=== PATIENT | female | born 1950 | race Caucasian/White ===

== ENCOUNTER 2024-01-25 14:00 | Outpatient (CLI) | payer MEDICARE, BC, SELFPAY ==
--- OUTSIDE RECORDS SUMMARY | 2024-01-25 14:04 | XMS_ITS ---
Author Organization [facility] Address [address] [place] [address] Care Team Providers Care Call Or Contact Centre Manager Name Role Phone Unavailable Unavailable Unavailable Surgery Details Not on file Complications Check Surgery Details section. Procedure Estimated Blood Loss Check Surgery Details section. Procedure Findings Check Surgery Details section. Procedure Specimens Taken Check Surgery Details section.
--- OUTSIDE RECORDS SUMMARY | 2024-01-25 14:04 | XMS_ITS | Data Portability ---
Author Organization [place] - [facility], [employer] Address [address] [place] [address] Assessment Encounter Date Assessment Date Assessment LastModified by Organization Details LastModified Time 01/13/2024 01/13/2024 For the R midfoot sprain, concern for lis franc injury or possible stress fracture. Today I recommended the patient use a short CAM boot to offload the foot aggressively. I also placed an MRI order to have pt schedule for 2 weeks if the pain does not improve with conservative measures by then. I instructed the patient to follow up in 3 weeks to review the progress and discuss the MRI results if obtained. I provided my contact information for any urgent concerns and ensured the patient understood the plan. The patient was fitted for a boot and given instructions to schedule a follow-up appointment. [email or web address] Not available 01/13/2024 18:55:24 Plan of Treatment Reminders Order Date Submit Date Provider Last Modified By Organization Details Last Modified Time Details Appointments None record ed. Lab None record ed. Referral None record ed. Procedures None record ed. Surgeries None record ed. Imaging None record ed. Medication Orders None record ed. Patient TargetsNo targets recorded. Patient InstructionsNo instructions recorded. Reason for Referral None Reported. Medical Equipment None Reported. Allergies No known drug allergies Medications Name Sig Start Date Stop Date Status Note LastModified by Organization Details LastModified Time venlafaxine ER 37.5 mg capsule,ext ended release 24 hr TAKE ONE CAPSULE BY MOUTH EVERY DAY WITH A MEAL active Not Available Not Available No t Available atorvastati n 10 mg tablet TAKE ONE TABLET BY MOUTH AT BEDTIME active Not Available Not Available No t Available famotidine 20 mg tablet TAKE ONE TO TWO TABLETS BY MOUTH TWICE A DAY active Not Available Not Available No t Available prednisolon e acetate 1 % eye drops,suspe nsion PLACE IN AFFECTED EYE(S) AFTER SURGERY ONE DROP FOUR TIMES DAILY FOR ONE WEEK, THEN ONE DROP THREE TIMES DAILY FOR ONE WEEK, THEN ONE DROP T 01/16 completed Not Available Not Available Not Available calcium carbonate active Not Available Not Available No t Available aspirin active Not Available Not Avail able Not Available multivitami n active Not Available Not Available Not Available mecobalamin (vitamin B12) active Not Available Not Available Not Available Vitals Date Recorded Body height Body mass index (BMI) Body weight Provider Name and Address Organization Details Last Updated DateTime 01/13/2024 162.56 cm 29.5 kg/m2 86434.89 g Ange Esparza [place] - [facility] 01/17/2024 11:49:41 Social History None recorded. Functional Status None recorded. Mental Status None recorded. Family History Nothing Reported. Medical History No medical history recorded. Gynecological HistoryNo gynecological history recorded. Obstetrics History GPAL:G 0 P 0 0 0 0 Past Encounters Encounter ID Performer Location Encounter Start Date Encounter Closed Date Diagnosis/Indication Diagnosis SNOMED-CT Code Diagnosis ICD10 Code [id number] PAOLA CHAVEZ DPM [facility] [address] [place] [address] 01/13/2024 08:58:08 01/16/2024 09:42:05 Sprain of right foot [id number] S93.601A Health Concerns Section Related Observation LastModified by Organization Detai ls LastModified Time None Recorded Concern Status LastModified by Organization Details LastModified Time None Recorded Advance Directives Directive None Recorded Payers Encounter Date Sequence Insurance Name Policy Number Policy Watts Covered Member ID Watts Member ID Guarantor Name 01/13/2024 1 [facility]: (MEDICARE REPLACEMENT PPO) [id number] Sofiya Gómez [id number] Sofiya Gómez Notes Date Note Type Note Provider Name and Address Organization Details Recorded Time 01/13/2024 text/html The patient reports dropping a picture frame on their right foot in early August, which caused significant pain. The pain initially improved but has worsened over time. The patient also hit the same spot on the foot with a refrigerator door about a week after the initial injury. The pain is described as severe, sometimes waking the patient from sleep. The patient denies any numbness, tingling, or burning sensations. The pain is localized to the area of impact but can radiate to the joint and up the foot. The patient has tried using Voltaren gel, which provided temporary relief, and has recently switched to larger shoes, which alleviated toe jamming but not the overall foot pain. The patient notes that the foot swells and becomes tight when walking and that the pain increases when the foot is elevated for extended periods. PAOLA CHAVEZ DPM [address] [place], [address], [facility] - [facility] 01/13/2024 18:55:44 OBGyn Episode No OBEpisode recorded.
--- OUTSIDE RECORDS SUMMARY | 2024-01-25 14:04 | XMS_ITS | Clinical Summary ---
Author Organization [facility] Address [address] [place] [address] Care Team Providers Care Set Key Driver Name Role Phone Elsewhere, Pcp Primary Care Provider Unavailabl e Source Comments Patient records contain information from all sites at [facility]. For routine questions regarding patient records, call [phone] during business hours, M-F 8:00 AM - 5:00 PM Central Time. Record requests for emergency care only can be directed to [phone] at any time.[facility] Allergies Active Allergy Reactions Criticality Noted Date Comments Adhesive Tape-Silicones Blisters,Rash High 03/15/2013 Ketorolac Other (see comments) 04/28/2023 Burning feeling in eyes Medications * This document contains information received from the source organization and may not represent a complete record from that organization. aspirin [address] tablet Take 81 mg by mouth. 4 Active atorvastatin (LIPITOR) 10 mg tablet Take 10 mg by mouth at bedtime. 2 Active calcium carbonate-vit D3-min 600 mg calcium- 400 unit tablet Take 1 tablet by mouth. 4 Active calcium carbonate/vitam in D3 (CALCIUM 600 + D,3, ORAL) 0 Active cyanocobalamin (VITAMIN B12) 1,000 mcg tablet Take 1,000 mcg by mouth. 1 Active denosumab (PROLIA) 60 mg/mL syringe Inject 60 mg under the skin. 8 Active famotidine (PEPCID) 20 mg tablet Take 1-2 tablets by mouth 2 (two) times a day. 1 Active FLUoxetine (PROzac) 20 mg capsule Take 20 mg by mouth every morning. 3 Active fluticasone propionate (FLONASE) 50 mcg/actuation nasal spray Administer 2 sprays into nostril(s). 1 Active multivitamin tablet Take 1 tablet by mouth daily. 4 Active multivit-min/fe rrous fumarate (MULTI VITAMIN ORAL) 1 Active omega-3 fatty acids-fish oil 340-1,000 mg per capsule Take 2 capsules by mouth daily. 6 Active ejsoh-4e-ule-ep a-fish oil (fish oil) 350-600 mg capsule 0 Active raloxifene (Evista) 60 mg tablet Take 1 tablet by mouth daily. 3 Active sertraline (ZOLOFT) 25 mg tablet TAKE ONE TABLET BY MOUTH EVERY DAY FOR 14 DAYS THEN STOP 2 Active ketorolac (ACULAR) 0.4 % ophthalmic solution 1 drop 3x/d the day before surgery, and 1 drop the morning of surgery, prior to reporting for surgery. After surgery 4x/d for 1 wk then 3x/d for 1 wk then 2x/d for 1 wk then 1x/d for 1 wk then stop 5 mL 3 3 Active ofloxacin (OCUFLOX) 0.3 % ophthalmic solution 1 drop 3x/d the day before surgery at 6PM, 7PM and 8PM. 1 drop the morning of surgery, prior to reporting for surgery. Then 1 drop 4x/d for 1 week, then stop 5 mL 3 3 Active prednisoLONE acetate (PRED FORTE) 1 % ophthalmic suspension After surgery 1 drop 4x/day for 1 week, then 1 drop 3x/day for 1 week, then 1 drop 2x/day for 1 week, then 1 drop 1x/day for 1 week, then stop 5 mL 3 3 Active Active Problems Problem Noted Date Diagnosed Date Cataract Senile Nuclear Sclerosis Right 03/16/19 24 Cataract Senile Nuclear Sclerosis Bilateral 04/0 06/2022 Overview (06/15/2022): Added automatically from request for surgery [id number] Immunizations Name Administration Dates Next Due H1N1 All Forms 02/28/2009 Influenza, Unspecified 12/15/2012,2010,12/26/2010,2009 Tetanus Toxoid, Adsorbed (discontinued) 02/16/2006 Family History Medical History Relation Name Comments Coronary artery disease Brother Alzheimer's disease Father Resident of a long term. Old age Mother Relation Name Status Comments Brother Father Mother Social History Tobacco Use Types Packs/Day Years Used Date Smoking Tobacco: Never Smokeless Tobacco: Never Tobacco Cessation:Counseling Given: Not Answered [facility] Excep Appsities Answer Date Recorded In the past 12 months has e electric, gas, oil, or water [employer] threatened to shut off services in your home? No 04/27/2023 Humiliation, Afraid, Rape, and Kick questionnair e Answer Date Recorded Within the last year, have y ou been afraid of your partner or ex-partner? No 09/09/2022 Within the last year, have y ou been humiliated or emotionally abused in other ways by your partner or ex-partner? No Within the last year, have y ou been kicked, hit, slapped, or otherwise physically hurt by your partner or ex-partner? No 09/09/2022 Within the last year, have y ou been raped or forced to have any kind of sexual activity by your partner or ex-partner? No 09/09/2022 Social Connection and Isolat ion Panel [NHANES] Answer Date Recorded In a typical week, how many times do you talk on the phone with family, friends, or neighbors? Three times a week 04/15/2022 How often do you get togethe r with friends or relatives? Twice a week 04/15/2022 How often do you attend chur ch or shinto services? More than 4 times per year 04/15/2022 Do you belong to any clubs o r organizations such as mormon groups, unions, fraternal or athletic groups, or school groups? Yes 04/15/2022 How often do you attend meet ings of the clubs or organizations you belong to? 1 to 4 times per year 04/15/2022 Are you , , di vorced, , never , or living with a partner? 04/15/2022 AUDIT-C Answer Date Recorded Q1: How often do you have a drink containing alc ohol? 2-3 times a week 04/15/2022 Q2: How many drinks containi ng alcohol do you have on a typical day when you are drinking? 1 or 2 04/15/2022 Q3: How often do you have si x or more drinks on one occasion? Never 04/15/2022 Overall Financial Resource Strain (CARDIA) Answe r Date Recorded How hard is it for you to pa y for the very basics like food, housing, medical care, and heating? Not hard at all 09/09/2022 [facility] - Occupational Stress Questionnaire Answer Date Recorded Do you feel stress - tense, restless, nervous, or anxious, or unable to sleep at night because your mind is troubled all the time - these days? Only a little 04/15/2022 Exercise Vital Sign Answer Date Recorde d On average, how many days pe r week do you engage in moderate to strenuous exercise (like a brisk walk)? 3 days 04/27/2023 On average, how many minutes do you engage in exercise at this level? 60 min 04/27/2023 Hunger Vital Sign Answer Date Recorded Within the past 12 months, y ou worried that your food would run out before you got the money to buy more. Never true 04/27/19 24 Within the past 12 months, t he food you bought just didn't last and you didn't have money to get more. Never true 04/27/2023 PRAPARE - Transportation Answer Date Re corded In the past 12 months, has l ack of transportation kept you from medical appointments or from getting medications? No 04/14 In the past 12 months, has l ack of transportation kept you from meetings, work, or from getting things needed for daily living? No 04/27/2023 Nutrition Answer Date Recorded Nutrition: EVOO Fat Source Yes 04/27 On average, how many serving s of fruits and vegetables do you eat per day (serving size is equal to 1 cup or approximately the size of a tennis ball)? 3-5 04/27/2023 Dental Answer Date Recorded Dental: Regular Dentist Yes 01/02/20 23 Employment Answer Date Recorded Employment status Retired 04/27/2023 Housing Stability Answer Date Recorded What is your living situation today? I have a [facility] place to live 04/27/2023 Education Answer Date Recorded What is the highest level of school you have completed or the highest degree you have received? 12th grade 03/15/2022 Comments No Sex and Gender Information Value Date Recorded Sex Assigned at Female 03/15/2022 8:34 PM DIRECTOR LEARNING AND DEVELOPMENT Legal Sex Female 4:53 AM DIRECTOR LEARNING AND DEVELOPMENT Gender Identity Female 03/15/2022 8:34 PM DIRECTOR LEARNING AND DEVELOPMENT Sexual Orientation Straight 03/15/2022 8: 34 PM DIRECTOR LEARNING AND DEVELOPMENT Last Filed Vital Signs Vital Sign Reading Time Taken Comments Blood Pressure 138/77 06/08/2023 2:15 PM CDT Pulse 72 06/08/2023 2:20 PM CDT Temperature 36.7 ??C (98.1 ??F) 06/08/2023 12:43 PM C DT Respiratory Rate 20 06/08/2023 2:20 PM CDT Oxygen Saturation 95% 06/08/2023 2:20 PM CDT Inhaled Oxygen Concentration - - Weight 77.8 kg (171 lb 8.3 oz) 06/08/2023 12:43 PM CDT Height 164.9 cm (5' 4.92) 06/08/2023 12:43 PM C DT Body Mass Index 28.61 06/08/2023 12:43 PM CDT Plan of Treatment Health Maintenance Due Date Last Done Comments Bone Density Scan (Osteoporosis Screen) 1951 CT Colonography 1950 Cologuard 1950 FIT 1950 Hepatitis C Screening 1950 Mammogram 03/19/2014 03/19/2013, 06/2012, 03/12/2011, Additional history exists Depression Screening (Annual PHQ-2) 03/14/2023 COVID-19 Vaccine ( season) 2023 12/13/2022, 12/29/2021, 06/12/2021, Additional history exists Influenza Vaccine (#1) 2023 , 12/29/2021, 12/10/2020, Additional history exists DTaP,Tdap,and Td Vaccines (2 - Td or Tdap) 09/03/2025 09/04/2015 Colonoscopy 02/08/2026 02/09/2016, 01/10/2006 Colorectal Cancer Screening 02/08/2026 Fasting Glucose for Diabetes Screening 02/16/2026 02/16/2023, 02/12/2022, 06/05/2021, Additional history exists Pneumococcal vaccine (65+ years) Completed 02/02/2017, 01/27/2016 Zoster Vaccines Completed 02/24/2018, 10/2017, 04/17/2015, Additional history exists Fall Risk Screen (Annual) Completed 06/08/2023 IPV Vaccines Aged Out No longer eligi ble based on patient's age to complete this topic Medical Devices Implanted Type Area Water Treatment Plant Repairer Device Identifier Shelf Expiration Date Model / Serial / Lot Lens Tcn Mnfcl Dcb00 +19.5d - [id number] - [id number] Implanted:Qty : 1 on 09/15/2022 by Miguel Almaraz M.D. at [facility] [employer] Ocular Lens Left: Eye [employer] (Previously BARBARA) 05/31/2025 [id number] / [id number] / Lens Tcn Mnfcl Dcb00 +20.5d - [id number] - [id number] Implanted:Qty : 1 on 06/08/2023 by Miguel Almaraz M.D. at [facility] [employer] Ocular Lens Right: Eye [employer] (Previously BARBARA) 11/24/2025 [id number] / [id number] / Procedures Procedure Name Priority Date/Time Associated Diagnosis Comments BI BREAST SCREENING BILATERAL Routine 03/19/2013 12:00 PM DIRECTOR LEARNING AND DEVELOPMENT from Last 3 Months or Most Recently Relevant to Health Maintenance Results * BI Breast Screening Bilateral (03/19/2013 12:00 PM DIRECTOR LEARNING AND DEVELOPMENT) Anatomical Region Laterality Modality Breast Bilateral Mammography 03/19/2013 12:0 0 PM DIRECTOR LEARNING AND DEVELOPMENT Impressions 03/19/2013 1:49 PM DIRECTOR LEARNING AND DEVELOPMENT Negative mammogram. ??Recommend annual screening mammography. BREAST MAMMOGRAPHY - GENERAL OBSERVATIONS: ??The false negative rate for mammography is 15-20%. ??It cannot be used, therefore, to replace the regular physical examination. ??A normal or noncontributory mammogram report also should not deter the aggressive further workup of any suspected palpable masses. ACR Code 1. Narrative 03/19/2013 1:49 PM DIRECTOR LEARNING AND DEVELOPMENT Comparison: 03/17/2012, 03/12/2011, 03/09/2010. FINDINGS: Breast tissue demonstrates scattered fibroglandular tissue in a stable parenchymal pattern. ??No evidence of suspicious mass, clustered microcalcification, architectural distortion. Computer aided detection utilized during interpretation of this exam. Procedure Note Vinny Merrill M.D. / ProviderNeftali M.D. - 07/23/2016 Comparison: 03/17/2012, 03/12/2011, 03/09/2010. FINDINGS: Breast tissue demonstrates scattered fibroglandular tissue in a stable parenchymal pattern. No evidence of suspicious mass, clustered microcalcification, architectural distortion. Computer aided detection utilized during interpretation of this exam. IMPRESSION: Negative mammogram. Recommend annual screening mammography. BREAST MAMMOGRAPHY - GENERAL OBSERVATIONS: The false negative rate for mammography is 15-20%. It cannot be used, therefore, to replace the regular physical examination. A normal or noncontributory mammogram report also should not deter the aggressive further workup of any suspected palpable masses. ACR Code 1. Historical Provider IMG BI PROCEDURES Edited Res ult - Final from Last 3 Months or Most Recently Relevant to Health Maintenance Insurance [facility] MEDICARE Care Teams Set Key Driver Relationship Specialty Start Date End Date Elsewhere, Pcp PCP - General Internal Medicine 06/08/23
--- OUTSIDE RECORDS SUMMARY | 2024-01-25 14:04 | XMS_ITS | Referral Summary ---
Author Organization [facility] Address [address] [place] [address] Care Team Providers Care Hand Sander Name Role Phone Elsewhere, Pcp Primary Care Provider Unavailabl e Source Comments Patient records contain information from all sites at [facility]. For routine questions regarding patient records, call [phone] during business hours, M-F 8:00 AM - 5:00 PM Central Time. Record requests for emergency care only can be directed to [phone] at any time.[facility] Allergies Active Allergy Reactions Criticality Noted Date [...] 2 capsules by mouth daily. 6 Active yxrcv-8p-uth-ep a-fish oil (fish oil) 350-600 mg capsule [...] (06/15/2022): Added automatically from request for surgery [id number] Immunizations Name Administration Dates Next Due H1N1 All Forms 02/28/2009 Influenza, Unspecified 12/15/2012,2010,12/26/2010,2009 Tetanus Toxoid, Adsorbed (discontinued) 02/16/2006 Social History Tobacco Use Types Packs/Day Years Used Date Smoking Tobacco: Never Smokeless Tobacco: Never Tobacco Cessation:Counseling Given: Not Answered [facility] Utilities Answer Date Recorded In the past 12 months has e [employer], oil, or water [employer] threatened to shut off services in your [...] 04/15/2022 How often do you attend chur or restorationism services? More than 4 times per year 04/15/2022 Do you belong to any clubs o r organizations such as bahai groups, unions, fraternal or athletic groups, or [...] and heating? Not hard at all 09/09/2022 [facility] - Occupational Stress [...] Answer Date Recorded Dental: Regular Dentist Yes 03/15/19 23 Employment Answer Date Recorded Employment status Retired 04/27/2023 Housing Stability Answer Date Recorded What is your living situation today? I have a [facility] place to live 04/27/2023 Education Answer Date Recorded What is the highest level of school you have completed or the highest degree you have received? 12th grade 03/15/2022 Comments No Sex and Gender Information Value Date Recorded Sex Assigned at Female 03/15/2022 8:34 PM COKE CRANE OPERATOR Legal Sex Female 4:53 AM COKE CRANE OPERATOR Gender Identity Female 03/15/2022 8:34 PM COKE CRANE OPERATOR Sexual Orientation Straight 03/15/2022 8: 34 PM COKE CRANE OPERATOR Last Filed Vital Signs Vital Sign Reading [...] 06/08/2023 12:43 PM CDT Plan of Treatment Not on file Medical Devices Implanted Type Area Poll Watcher Device Identifier Shelf Expiration Date Model / Serial / Lot Lens Tcn Mnfcl Dcb00 +19.5d - [id number] - [id number] Implanted:Qty : 1 on 09/15/2022 by Miguel Almaraz M.D. at [facility] Ocular Lens Left: Eye [employer] (Previously [employer]) 05/31/2025 [id number] / [id number] / Lens Tcn Mnfcl Dcb00 +20.5d - [id number] - [id number] Implanted:Qty : 1 on 06/08/2023 by Miguel Almaraz M.D. at [facility] Ocular Lens Right: Eye [employer] (Previously [employer]A) 11/24/2025 [id number] / [id number] / Procedures Procedure Name Priority Date/Time Associated Diagnosis Comments BI BREAST SCREENING BILATERAL Routine 03/19/2013 12:00 PM COKE CRANE OPERATOR from Last 3 Months or Most Recently Relevant to Health Maintenance Results * BI Breast Screening Bilateral (03/19/2013 12:00 PM COKE CRANE OPERATOR) Anatomical Region Laterality Modality Breast Bilateral Mammography 03/19/2013 12:0 0 PM COKE CRANE OPERATOR Impressions 03/19/2013 1:49 PM COKE CRANE OPERATOR Negative mammogram. ??Recommend annual screening mammography. BREAST MAMMOGRAPHY - GENERAL OBSERVATIONS: ??The false negative rate for mammography is 15-20%. ??It cannot be used, therefore, to replace the regular physical examination. ??A normal or noncontributory mammogram report also should not deter the aggressive further workup of any suspected palpable masses. ACR Code 1. Narrative 03/19/2013 1:49 PM COKE CRANE OPERATOR Comparison: 03/17/2012, 03/12/2011, 03/09/2010. FINDINGS: Breast tissue [...] Most Recently Relevant to Health Maintenance Insurance [id number] [place] [id number] [facility] MEDICARE Care Teams Hand Sander Relationship Specialty Start Date End Date Elsewhere, Pcp PCP - General Internal Medicine 06/08/23
--- OUTSIDE RECORDS SUMMARY | 2024-01-25 14:04 | XMS_ITS | Clinical Summary ---
Author Organization [facility] Address [place], [place] [address] Care Team Providers Care Closing Specialist Name Role Phone Rosendo Luda Baez DO Primary Care Provider Rochelle Guerrero MD Unavailable [phone] Allergies No known active allergies Medications Medication Sig Dispensed Refills Start Date End Date Status calcium carbonate-vit D3, 600 mg-400 units, (CALCIUM-VITAMIN D) tablet Take 1 tablet by mouth 2 times daily with meals. 0 02/28/2014 Active multivitamin (MVI) tablet Take 1 tablet by mouth once daily. 0 02/28/2014 Active aspirin (ECOTRIN) 81 mg enteric coated tablet Take 1 tablet by mouth once daily with a meal. 0 02/28/2014 Active fish oil-omega-3 fatty acids (FISH OIL) 1,000-340 mg capsule Take 2 capsules by mouth once daily. 0 11/07/2015 Active denosumab (PROLIA) 60 mg/mL injectionIndications :Osteoporosis, unspecified osteoporosis type, unspecified pathological fracture presence 60 mg pre filled syringe SQ every 6 months for four years. [place] approval effective (02/13/2018) To be administered at the clinic. 1 mL 8 02/13/2018 Active medication order composerIndications: CLAIRE (obstructive sleep apnea) 1 mandibular advancement device to be used during sleep 1 Device 10/14/2019 Active cyanocobalamin (Vitamin B-12) 1,000 mcg tablet Take 1 Tablet (1,000 mcg) by mouth once daily. 90 Tablet 3 02/19/2021 Active atorvastatin (LIPITOR) 10 mg tabletIndications:Hy perlipidemia, unspecified hyperlipidemia type TAKE ONE TABLET BY MOUTH AT BEDTIME 90 Tablet 3 02/23/2023 Active venlafaxine (EFFEXOR XR) 37.5 mg Extended-Release capsuleIndications:D epression with anxiety TAKE ONE CAPSULE BY MOUTH EVERY DAY WITH A MEAL 90 Capsule 1 08/22/2023 Active famotidine (PEPCID) 20 mg tabletIndications:Ch ronic GERD TAKE ONE TO TWO TABLETS BY MOUTH TWICE A DAY 360 Tablet 12/14/2023 Active Hospital, Clinic, or Other Facility Administered Medication Ordered Dose Route Frequency Start Date End Date Status denosumab (PROLIA) injection 60 mgIndications:Age-re lated osteoporosis without current pathological fracture 60 mg SubQ Q 6 MONTHS (24 WEEKS) 08/06/2021 Active denosumab (PROLIA) injection 60 mgIndications:Age-re lated osteoporosis without current pathological fracture 60 mg SubQ Q 6 MONTHS (24 WEEKS) 07/05/2023 01/06/2024 Ended Active Problems Problem Noted Date Diagnosed Date Vitamin B12 deficiency 03/18/2021 Hyperlipidemia 02/11/2020 Depression with anxiety 02/11/2020 Chronic bilateral low back pain 11/15/2017 Sacroiliac joint dysfunction of left side 2017 Degenerative lumbar spondylosis from MRI finding s 11/15/2017 Lumbar disc herniation 11/10/2017 Closed compression fracture of L5 lumbar vertebr a 11/10/2017 Bulge of lumbar disc without myelopathy 11/11/19 18 Anemia 09/20/2016 Prepatellar bursitis of right knee 01/27/2016 Wenckebach 04/09/2014 Anxiety 02/28/2014 Osteoporosis 02/28/2014 Overview (03/18/2021): Noted on DEXA in Oct 2015, worsened from 2012 while taking Evista. Didn't tolerate fosamax in the past. Started Prolia in 02/2018. Repeat dexa Mar 2021 showed improvement. Continue prolia for 5 years total, then transition to bisphosphonate if possible. Thoracic back pain 02/28/2014 SVT (supraventricular tachycardia) Overview (02/28/2014): was a problem in the past, improved, now returning. CLAIRE (obstructive sleep apnea) Resolved Problems Problem Noted Date Diagnosed Date Resolved Date Acute bilateral low back lalo n with bilateral sciatica 09/20/2016 08/31/2021 Joint swelling 02/28/2014 08/31/2021 Night sweats 02/28/2014 08/31/2021 Blurred vision 02/28/2014 08/31/2021 SOB (shortness of breath) 02/28/2014 Dizziness 02/28/2014 08/31/2021 Encounters Date Type Department Care Team Description 01/06/2024 9:00 AM CDT Nurse/Clinic Staff Only [facility] [address] [place] [address] Immunization/Injecti on (prolia) 01/06/2024 Travel 01/01/2024 Travel 12/11/2023 Refill [facility] [address] [place] [address] Luda Robbins DO Refill Request (Famotidine) 11/07/2023 8:59 AM CDT - 11/07/2023 11:59 PM CDT Hospital Encounter [facility] [address] [place] [address] Encounter for other screening for malignant neoplasm of breast 11/07/2023 Travel from Last 3 Months Immunizations Name Administration Dates Next Due AMB Influenza, IIV4 PF (=>6 mos Flulaval,Fluzone Fluarix)(Flu Clinic Only) 12/14/2013 COVID-19 vaccine ([email or web address] 30mcg/0.3mL) 12YO+ PADMA-SUCROSE PF, MDV 06/12/2021 Influenza A (H1N1), Inactiva karla (Age >=3 Years) 02/28/2009 Influenza Virus, Unspecified 12/15/2012,12/27/19 11,12/12/2009 Influenza, High-dose Inactivated 12/19/2018,11/13 Influenza, IIV3 (Age >=3 years) 11/21/2009 Influenza, IIV4 11/07/2015, 5,12/14/2013,02/28 Influenza, Inactivated AIIV4 (Age 65+ Years) Preserv Free 12/09/2022,12/29/2021,12/10/2020,10/28 Influenza, Inactivated IIV3 (Age 65+ Years) Preserv Free 11/13/2019,11/26/2016 Pneumococcal Poly,23-Valent (Pneumovax) 02/02/2017 Pneumococcal conj 13-Valent (Prevnar 13) 01/27/2016 RSV, Bivalent Vaccine Recons tituted (Abrysvo 120MCG/0.5mL) 12/22/2022 Td (Age >=7 Years) 02/16/2006 Tdap 09/05/2015 Tetanus Toxoid 02/16/2006 Zoster (Shingrix-RZV, recombinant) 02/24/2018, Zoster (Zostavax-ZVL, live) 04/17/2015 Family History Medical History Relation Name Comments Heart Disease Brother CO x2, stents Arthritis Father And gout Other Father alzheimers Osteoporosis Mother Cancer-breast No Family History Relation Name Status Comments Brother Father (Age 93) Mother (Age 86) Social History Tobacco Use Types Packs/Day Years Used Date Smoking Tobacco: Never Passive Smoke Exposure: Past Smokeless Tobacco: Never Tobacco Cessation:Counseling Given: Not Answered Passive Exposure Comments:mom and dad smoked in child ferrer life Alcohol Use Standard Drinks/Week Comments Yes 5 (1 standard drink = 0.6 oz pur e alcohol) PHQ-2 Answer Date Recorded PHQ-2 TOTAL SCORE 0 02/16/2023 Social Connections Answer Date Recorded Frequency of Communication with Friends and Fami ly Not on file 06/09/2023 Financial Resource Strain Answer Date R ecorded Difficulty of Paying Living Expenses 3 05/31/2022 Difficulty of Paying Living Expenses Not on file 05/31/2022 Food Insecurity Answer Date Recorded Worried About Running Out of Food in the Last Ye ar 1 05/31/2022 Transportation Needs Answer Date Record ed Lack of Transportation (Medical) 1 05/31/2022 Housing Stability Answer Date Recorded Unable to Pay for Housing in the Last Year 1 05/31/2022 Sex and Gender Information Value Date Recorded Sex Assigned at Not on file Gender Identity Not on file Sexual Orientation Not on file Obstetrics History Last Filed Vital Signs Vital Sign Reading Time Taken Comments Blood Pressure 112/70 02/16/2023 10:08 AM POWDER EXPERT Pulse 66 02/16/2023 10:08 AM POWDER EXPERT Temperature 37.1 ??C (98.7 ??F) 09/01/2022 8:10 AM CD T Respiratory Rate 12 09/01/2022 8:10 AM CDT Oxygen Saturation 99% 02/16/2023 10:08 AM POWDER EXPERT Inhaled Oxygen Concentration - - Weight 78.2 kg (172 lb 6.4 oz) 02/16/2023 10:08 AM POWDER EXPERT Height 165.1 cm (5' 5) 02/16/2023 10:08 AM POWDER EXPERT Body Mass Index 28.69 02/16/2023 10:08 AM POWDER EXPERT Plan of Treatment Upcoming Encounters Date Type Department Care Team (Late st Contact Info) Description 02/20/2024 7:50 AM POWDER EXPERT Office Visit [address] [phone] Luda Robbins, [address] [address] 07/06/2024 9:00 AM CDT Nurse/Clinic Staff Only [address] [phone] Health Maintenance Due Date Last Done Comments Influenza for age 65+ 11/13/2023 12/09/2022 , 12/29/2021, 12/10/2020, Additional history exists BMI (ht and wt on same day) for age 18+ 02/17/2024 02/16/2023, 09/01/2022, 02/12/2022, Additional history exists Medicare Wellness for age 65+ 02/17/2024, 02/12/2022, 02/11/2021, Additional history exists Depression screening for age 12+ 02/19/2024 02/18/2023, 02/16/2023, 12/08/2022, Additional history exists Mammogram for age 45-75 11/06/2024 11/07/19 24, 09/28/2022, 09/18/2021, Additional history exists Tetanus booster 09/04/2025 09/05/2015, 02/16/2006 Colonoscopy through age 75 02/08/202602/08, 02/09/2016, 02/09/2016, Additional history exists Lipids for age 45-75 02/17/2028 02/16/2023, 02/12/2022, 06/05/2021, Additional history exists Tdap Completed 09/05/2015 Pneumococcal series for age 65+ Completed 7, 01/27/2016 Zoster (shingles) series for age 50+ Completed 02/24/2018, 12/19/2017, 04/17/2015 Hepatitis C screening for ag e 18-79 Completed 02/07/2019 DEXA/DXA scan for age 65+ Completed 2021, 02/07/2018, 10/13/2015 COVID-19 vaccine series Completed 12/12/19 24, 12/13/2022, 12/29/2021, Additional history exists Procedures Procedure Name Priority Date/Time Associated Diagnosis Comments XR MAMMO YI BILAT SCREEN Routine 11/07/2023 9:03 AM CDT Encounter for other screening for malignant neoplasm of breast LIPID PANEL W REFLEX MEASURED LDL Routine 02/16/2023 11:40 AM POWDER EXPERT Hyperlipidemia, unspecified hyperlipidemia type XR DXA BONE DENSITY 2 SITES AXIAL Routine 03/16/2021 2:37 PM POWDER EXPERT Age-related osteoporosis without current pathological fracture Asymptomatic postmenopausal state ANTI HCV Routine 02/07/2019 10:19 AM POWDER EXPERT Need for hepatitis C screening test COLONOSCOPY SCREENING Routine 02/09/2016 7:59 AM POWDER EXPERT Screening from Last 3 Months or Most Recently Relevant to Health Maintenance Results * XR MAMMO YI BILAT SCREEN (11/07/2023 9:03 AM CDT) Anatomical Region Laterality Modality BREASTS, Breast Left, Breast Right Bilateral Mammography Impressions 11/07/2023 12:26 PM CDT ??There is no radiographic evidence for malignancy. ??Recommend annual mammograms. MAMMOGRAM ASSESSMENT: ??ACR 1 Negative PATIENTS: You will also receive a letter with your examination results in an easy to read format. ??If you have questions about your results, please contact your referring provider. Narrative 11/07/2023 12:26 PM CDT For Patients: As a result of the Century Cures Act, medical imaging exams and procedure reports are released immediately into your electronic medical record. You may view this report before your referring provider. If you have questions, please contact your health care provider. XR MAMMO YI BILAT SCREEN [[id number]] CLINICAL HISTORY: ??This is an asymptomatic 73 y.o. patient. INDICATION FOR EXAM: Mammogram Screening. TECHNIQUE: CC & MLO views were obtained. ??This study was evaluated with the assistance of Computer-Aided Detection. Breast Tomosynthesis was used in interpretation. COMPARISON FILM: Yes 09/28/22 ? FINDINGS: ??There are scattered areas of fibroglandular density. There are no dominant masses, suspicious micro calcifications or areas of architectural distortion. Luda Robbins DO MAMMO * LIPID PANEL W REFLEX MEASURED LDL (02/16/2023 11:40 AM POWDER EXPERT) CHOLESTEROL,TOTAL 178 100 - 199 mg/dL 02/16/2023 12:47 PM [facility] Comment: Cholesterol, Total Reference Ranges Desirable <200 mg/dL Borderline 200-239 mg/dL High >=240 mg/dL TRIGLYCERIDES 96 <150 mg/dL 02/16/2023 12:47 PM [facility] HDL CHOLESTEROL 85 >40 mg/dL 12:47 PM [facility] NON-HDL CHOLESTEROL 93 <145 mg/dl 02/16/2023 12:47 PM [facility] CHOL/HDL RATIO 2.09 <4.50 02/16/2023 12:47 PM [facility] LDL CHOLESTEROL 74 <=130 mg/dL 02/16/2023 12:47 PM [facility] VLDL CHOLESTEROL 19 <=30 mg/dL 02/16/2023 12:47 PM [facility] PROVIDER ORDERED STATUS RANDOM 02/16/2023 12:47 PM [facility] Blood BLOOD SPECIMEN / Unknown Venipuncture / Unknown 02/16/2023 11:40 AM POWDER EXPERT 02/16/2023 11:42 AM POWDER EXPERT Luda Robbins DO CHEMISTRY [facility] [address] [place], [place] [id number] * (ABNORMAL) XR DXA BONE DENSITY 2 SITES AXIAL (03/16/2021 2:37 PM POWDER EXPERT) Anatomical Region Laterality Modality Spine, HIPS, HIPL, HIPR Computed Radiography Impressions 03/17/2021 3:54 PM POWDER EXPERT Osteopenia. ??Bone density has increased significantly since 2018 with Prolia. RECOMMENDATIONS: The National Osteoporosis Foundation recommends pharmacologic treatment for patients with T-scores of -2.5 or less, patients with prior history of fragility fractures, or patients with 10-year probability of greater than 3% at hips or greater than 20% of suffering major osteoporotic fractures. Recommend continued optimization of calcium and vitamin D intake through dietary means and/or supplementation and regular exercise. Continue Prolia for 5 consecutive years. ??After stopping Prolia, must treat with a bisphosphonate because of rapid bone loss that occurs after stopping Prolia. Narrative 03/17/2021 3:54 PM POWDER EXPERT For Patients: Results are automatically released to your [employer] ([employer]) account once available, in compliance with federal regulations. This means that you may see your results before your provider has had a chance to review them. Please allow 2-3 business days for your provider to comment on the results. XR DXA Bone Mineral Density (BMD) EXAM [facility] [address] [facility] [phone] PATIENT NAME: Sofiya Gómez DATE OF : 1950 EXAM DATE: 03/16/2021 REQUESTING PROVIDER: Luda Robbins, GENDER AT : female HEIGHT: 5' 4.07 (02/11/2021) WEIGHT: ??170 lb (02/19/2021) MENOPAUSAL STATUS: Postmenopausal RACE/ETHNICITY: White RISK FACTORS: Family History of Osteoporosis, Family History of Hip Fracture (parental) and White Race CURRENT MEDICATION FOR BONE LOSS: Denosumab (Prolia) INDICATION: Age-related osteoporosis without current pathological fracture; Asymptomatic postmenopausal state COMPARISON DATE(S): 2018 DXA scans are compared to prior studies for a patient only when the two (or more) studies were performed on the same scanner. It is not possible to compare data generated on one scanner to data from another because there are not standards in DXA equipment. This applies even if the two scanners are made by the same hammer mill operator. PROCEDURE: Dual-energy x-ray absorptiometry performed with routine technique. Reporting is completed in the form of a T-score. The T-score represents the standard deviation from peak bone mass based on young healthy adult. A Z-score is used for diagnosis in premenopausal women, and for men under the age of 50. FINDINGS: RESULT LUMBAR SPINE L1 - L4 BMD: 1.018 g/cm2 T-Score: - 1.4 Change from prior in 2018: ??Increase 14.1%. RESULTS FEMUR Left femoral neck BMD: 0.874 g/cm2 T-Score: - 1.2 Change from prior in 2018: ??Decrease 2.9%. Right femoral neck BMD: 0.938 g/cm2 T-Score: - 0.7 Change from prior in 2018: ??Increase 9.2%. Left hip BMD: 0.955 g/cm2 T-Score: - 0.4 Change from prior in 2018: ??Increase 5.4%. Right hip BMD: 0.919 g/cm2 T-Score: - 0.7 Change from prior in 2018: ??Increase 6.9%. WHO criteria: Normal: T-score at or above -1 SD Osteopenia: T-score between -1.1 and -2.4 SD Osteoporosis: T-score at or below -2.5 SD Luda Robbins DO DEXA * ANTI HCV (02/07/2019 10:19 AM POWDER EXPERT) HEPATITIS C ANTIBODY Non-React ameena Non-React ameena 02/07/2019 3:50 PM POWDER EXPERT [facility] Comment:Antibodies to HCV no t detected; does not exclude the possibility of exposure to HCV. Blood BLOOD SPECIMEN / Unknown Venipuncture / Unknown 02/07/2019 10:19 AM POWDER EXPERT 02/07/2019 10:20 AM POWDER EXPERT Luda Robbins DO [facility] [address] [place] [address], * COLONOSCOPY SCREENING (02/09/2016 7:59 AM POWDER EXPERT) Luda Robbins DO GI PROCEDURE ORD from Last 3 Months or Most Recently Relevant to Health Maintenance Advance Directives Documents on File Type Date Recorded Patient Zone Manager Expl anation Healthcare Directive 07/03/2021 022 Healthcare Directive 03/15/2015 12:00 AM Care Teams Closing Specialist Relationship Specialty Start Date End Date Luda Robbins DO [address] [place] [address] PCP - General Internal Medicine 03/19/14 Rochelle Guerrero MD [address] [facility] [address] [facility] [address] [place] [address] Rheumatology Rheumatology 04/18/14
--- OUTSIDE RECORDS SUMMARY | 2024-01-25 14:04 | XMS_ITS | Continuity of Care Document ---
Author Organization [place] [facility] [place] Address [address] [place] [address] Assessment Encounter Date Assessment Date Assessment LastModified [...] given instructions to schedule a follow-up appointment. halley Not available 01/13/2024 18:55:24 Plan of Treatment [...] Updated DateTime 01/13/2024 162.56 cm 29.5 kg/m2 32681.89 g Ange Cherryke [place] [facility] 01/17/2024 11:49:41 Social History None recorded. Functional Status None recorded. Mental Status None recorded. Family History Nothing Reported. Medical History No medical history recorded. Gynecological HistoryNo gynecological history recorded. Obstetrics History GPAL:G 0 P 0 0 0 0 Past Encounters Encounter ID Performer Location Encounter Start Date Encounter Closed Date Diagnosis/Indication Diagnosis SNOMED-CT Code Diagnosis ICD10 Code [id number] PAOLA CHAVEZ [id number] [place] [address] 01/13/2024 08:58:08 01/16/2024 09:42:05 Sprain of right foot [id number] S93.601A Health Concerns Section Related Observation LastModified by Organization Detai ls LastModified Time None Recorded Concern Status LastModified by Organization Details LastModified Time None Recorded Payers Encounter Date Sequence Insurance Name Policy Number Policy Watts Covered Member ID Watts Member ID Guarantor Name 01/13/2024 1 [facility]: (MEDICARE REPLACEMENT PPO) [id number] Sofiya Gómez [id number] Sofiya Gómez Notes Date Note Type Note [...] for extended periods. PAOLA CHAVEZ DPM [address] [place], [address], [facility] - [facility] 01/13/2024 18:55:44 OBGyn Episode No OBEpisode recorded.
--- NOTE | 2024-01-25 14:30 | CRLHL7_ITS ---
For Patients: As a result of the Century Cures Act, medical imaging exams and procedure reports are released immediately into your electronic medical record. You may view this report before your referring provider. If you have questions, please contact your health care provider. EXAM: MRI OF THE RIGHT FOOT, WITHOUT CONTRAST CLINICAL INDICATION: Foot pain following injury to the dorsum of the foot. COMPARISON PLAIN FILMS: 12/21/2023. COMPARISON CROSS-SECTIONAL IMAGING STUDIES: None. TECHNICAL: Axial, sagittal and coronal T1, PD and STIR images. FINDINGS: OSSEOUS STRUCTURES: No fracture or contusion. Reactive subcortical cystic change in the medial eminence of the 1st metatarsal. No worrisome osseous lesion. No evidence for avascular necrosis. JOINT SPACES: Moderate chondromalacia with mild hypertrophic change in the 1st MTP joint. The remaining joint spaces are unremarkable. LIGAMENTS: The Lisfranc ligament is intact. TMT joint alignment is maintained. The collateral ligaments of the MTP joints are intact. TENDONS AND MUSCLES: The flexor and extensor tendons are intact. The distal peroneus longus and brevis tendons are intact. No muscle atrophy or edema. SOFT TISSUES: No subcutaneous hematoma. No subcutaneous edema. No soft tissue mass. IMPRESSION: 1. 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 2. Reactive subcortical cystic change in the medial eminence of the 1st metatarsal. 3. No occult fracture. Dictated by Arslan De La Rosa MD @ 01/25/2024 3:40:50 PM (Electronically Signed)
== END 2024-01-25 14:01 | disposition home or self-care (01) ==
LOC: MRI 14:02
PROVIDERS: PCP Internal Medicine; Visit Provider Podiatrist
DX: M79.671 Pain in right foot (principal); M19.071 Primary osteoarthritis, right ankle and foot; S93.601A Unspecified sprain of right foot, initial encounter
CPT/HCPCS: 73718

== ENCOUNTER 2024-06-12 12:13 | Emergency (ER) | payer MEDICARE, BC, SELFPAY ==
--- OUTSIDE RECORDS SUMMARY | 2024-06-12 12:15 | XMS_ITS | Data Portability ---
Author Organization [place] [facility], [employer] Address [address] [facility] [place] [address] Assessment Encounter Date Assessment Date Assessment LastModified by Organization Details LastModified Time 01/13/2024 01/13/2024 For the R midfoo t sprain, concern for lis franc injury or [...] follow-up appointment. halley Not available 01/13/2024 18:55:24 02/03/2024 02/03/2024 For the midfoot pain, likely due to overload secondary to underlying 1st MPJ OR and hallux valgus. Today I recommended and dispensed orthotics with a 1st ray cutout modification to provide better support and reduce pressure on the big toe. I advised the patient to ice the area, use Voltaren gel, and take ibuprofen as needed. I prescribed a Medrol dose pack to help reduce inflammation and pain. I also discussed the option of a steroid injection if the pain becomes severe. I scheduled a follow-up appointment in [place] in about a week and a half to reassess the patient's condition and make any necessary adjustments to the treatment plan. halley Not available 02/05/2024 10:49:08 02/15/2024 02/15/2024 For the osteoarthritis of the first metatarsophalangeal joint, I recommended continuing with the current inserts and modifications (kay 1st MPJ cutouts and 1 pad of varus wedge and lift R foot). I advised the patient that if the pain persists or worsens, we could consider a steroid injection to manage the symptoms. I instructed the patient to monitor for any additional issues such as knee, hip, or back pain and to contact me if these arise. For the mid-foot pain, I provided additional exercises to improve mobility and reduce discomfort. I emphasized the importance of continuing these exercises diligently for six to eight weeks. I also recommended wearing shoes and inserts while performing the exercises to ensure proper support. I informed the patient that the insoles might need replacement in about a year, depending on wear and tear, and to contact us if a new set is needed. I told the patient to follow up if the pain does not improve or if any new symptoms develop. The patient was advised to continue with the current treatment plan and to reach out if further assistance is needed. halley Not available 02/15/2024 13:19:41 02/28/2024 02/28/2024 For the pain in the right foot 1st MPJ, I administered a cortisone injection. I explained to the patient that the numbing medication would take effect in about 5-10 minutes and might last throughout the day, while the steroid would take about 24 hours to kick in. I advised the patient to take it easy for the rest of the day and to expect some soreness, known as a post-steroid flare. I also adjusted the patient's insoles to provide better support with more of a varus wedge and advised them to take Tylenol or Ibuprofen as needed for pain. I told the patient to call me if they need further assistance and to follow up if the pain persists. halley Not available 02/28/2024 16:39:20 Plan of Treatment Reminders Order Date Submit Date Provider Last Modified By Organization Details Last Modified Time Details Appointments None recorded. Lab None recorded. Referral None recorded. Procedures injection/a spiration, small joint or bursa, without ultrasound guidance (PROC) 2023 024 [id number] Not available 16:38:08 Surgeries None recorded. Imaging None recorded. Medication Orders Medrol (Gildardo) 4 mg tablets in a dose pack 2023 024 [place], [place], [address] [place], [address], 09:39:35 Patient TargetsNo targets recorded. Patient InstructionsNo instructions [...] Not Available Not Available No t Available venlafaxine ER 75 mg capsule,ext ended release 24 hr active Not Available Not Available Not Available atorvastati n 10 mg tablet TAKE ONE TABLET BY MOUTH AT BEDTIME active Not Available Not Available No t Available famotidine 40 mg tablet active Not Available Not Available Not Available Medrol (Gildardo) 4 mg tablets in a dose pack Take 1 dose pk by oral route for 6 days. 02/05 completed Not Available Not Available Not Available famotidine 20 mg tablet TAKE ONE [...] Updated DateTime 01/13/2024 162.56 cm 29.5 kg/m2 12021.89 g Ange Esparza [place] [facility] 01/17/2024 11:49:41 Social History None recorded. Functional Status None recorded. Mental Status None recorded. Family History Nothing Reported. Medical History No medical history recorded. Gynecological HistoryNo gynecological history recorded. Obstetrics History GPAL:G 0 P 0 0 0 0 Past Encounters Encounter ID Performer Location Encounter Start Date Encounter Closed Date Diagnosis/Indication Diagnosis SNOMED-CT Code Diagnosis ICD10 Code Diagnosis Note [id number] PAOLA CHAVEZ DPM [place] [address] [place] [address] 01/13/2024 08:58:08 01/16/2024 09:42:05 Sprain of right foot [id number] S93.601A [place] [id number] [facility] [place] [address] 02/03/2024 09:06:40 02/06/2024 09:40:57 Sprain of right foot [id number] S93.601A Total time spent on the E/M service was 30 minutes, which included reviewing patient history, performing a medically appropriat e examinatio n, counseling the patient, and documentin g clinical informatio n. Acquired h allux limitus of right great toe [id number] 865425 M20.5X1 Hallux vadim abimael AND bunion [id number] M20.10 Degenerati ve joint disease of ankle AND/OR foot 91983113 M19.071 [id number] PAOLA CHAVEZ DPM [place] [facility] [address] [facility] [address] [place] [address] 02/15/2024 11:09:30 02/15/2024 15:16:02 Sprain of right foot [id number] 1007004 S93.601A Acquired h allux limitus of right great toe 4280211777 758127 M20.5X1 Hallux vadim abimael AND bunion [id number] M20.10 Degenerati ve joint disease of ankle AND/OR foot 89274919 M19.071 [id number] [facility] [address] [place] [address] 02/28/2024 14:58:21 02/29/2024 09:51:08 Sprain of right foot [id number] S93.601A Acquired h allux limitus of right great toe 8037062742 251234 M20.5X1 PROCEDURE: Prior to start of procedure, both written and verbal consent obtained. A TIME-OUT was performed to identify the correct anatomic location and laterality (R foot). The injection site was prepped with betadine and alcohol and allowed to dry thoroughly . A mixture of 1cc of 2% lidocaine plain, 1cc of kenalog-40 (triamcino lone acetonide) , 1cc of dexamethas one (4mg/mL) was prepared and injected into the R 1st MPJ without incident. Patient tolerated this well. Provided them with post-proce dure care instructindu poon. Hallux vadim abimael AND bunion [id number] M20.10 Degenerati ve joint disease of ankle AND/OR foot 49136713 M19.071 Health Concerns Section Related Observation LastModified by Organization Detai ls LastModified Time None Recorded Concern Status LastModified by Organization Details LastModified Time None Recorded Advance Directives Directive None Recorded Payers Encounter Date Sequence Insurance Name Policy Number Policy Watts Covered Member ID Watts Member ID Guarantor Name 01/13/2024 1 [place] [id number] Sofiya Gómez [id number] Sofiya Dalia 02/03/2024 1 [place] [id number] Sofiya Gómez [id number] Sofiya Dalia 02/15/2024 1 [place] [id number] Sofiya Gómez [id number] Sofiya Dalia 02/28/2024 1 [place] [id number] Sofiya Gómez [id number] Sofiya Dalia Notes Date Note Type Note Provider Name and Address Organization Details Recorded Time 4 text/html The patient reports dropping a picture [...] for extended periods. PAOLA CHAVEZ DPM [address] [place], [address], [facility] 01/13/2024 18:55:44 4 text/html The patient is here for a follow-up regarding their MRI results. The patient reports that their foot pain has not improved significantly, even with the use of a boot. They mention that the boot sometimes seems to make the pain worse. The patient states that the pain is primarily in the big toe joint and extends across the top of the foot, often waking them up at night. The onset of the big toe pain coincided with the use of the boot. The patient wore the boot only for a week at most and inconsistently, as they felt it was not helping. They have also experienced increased pain upon stepping on the foot, describing it as a dull toothache with a severity of 8 out of 10. PAOLA CHAVEZ DPM [address] [place], [address], [facility] 02/05/2024 10:50:09 4 text/html The patient presented for a follow-up regarding R mid-foot pain and first metatarsophalangeal joint (MPJ) osteoarthritis. The patient reported that the top of the foot no longer hurts and the pain does not wake them up at night, which is an improvement. The primary area of discomfort is now the big toe joint. The patient mentioned that the pain is felt upon getting out of bed in the morning but improves throughout the day. The patient has been using inserts, which have provided some relief, but there is still some pain that occasionally extends up the foot. The patient rated the pain in the big toe joint as a 1 out of 10, indicating it is present but not debilitating. PAOLA CHAVEZ DPM [address] [place], [address], [facility] 02/15/2024 13:19:48 4 text/html The patient presents for recurrent R 1st MPJ pain. The patient reported that the pain worsened significantly after a two-mile walk, starting about long term through the walk. The patient has not been able to walk much and misses it. The pain is particularly severe in the morning when they first step on the floor. The patient has tried various treatments without success and is considering a cortisone shot for relief. PAOLA CHAVEZ DPM [address] [place], [address], [facility] 02/28/2024 16:40:52 OBGyn Episode No OBEpisode recorded.
--- OUTSIDE RECORDS SUMMARY | 2024-06-12 12:15 | XMS_ITS | Clinical Summary ---
Author Organization [facility] Address [address] [place] [address] Care Team Providers Care Laundry Bag Punch Operator Name Role Phone Rosendo Luda Baez DO Primary Care Provider Rochelle Guerrero MD Unavailable Allergies No known active allergies Medications calcium carbonate-vit D3, 600 mg-400 units, (CALCIUM-VITAMIN D) tablet Take 1 tablet by mouth 2 times daily with meals. 0 02/29/20 14 Active multivitamin (MVI) tablet Take 1 tablet by mouth once daily. 0 02/29/20 14 Active aspirin (ECOTRIN) 81 mg enteric coated tablet Take 1 tablet by mouth once daily with a meal. 0 02/29/20 14 Active fish oil-omega-3 fatty acids (FISH OIL) 1,000-340 mg capsule Take 2 capsules by mouth once daily. 0 11/07/19 16 Active denosumab (PROLIA) 60 mg/mL injectionIndicatio ns:Osteoporosis, unspecified osteoporosis type, unspecified pathological fracture presence 60 mg pre filled syringe SQ every 6 months for four years. [place] approval effective (02/13/2018) To be administered at the clinic. 1 mL 8 02/14/20 18 Active medication order composerIndication s:CLAIRE (obstructive sleep apnea) 1 mandibular advancement device to be used during sleep 1 Device 10/14/19 20 Active cyanocobalamin (Vitamin B-12) 1,000 mcg tablet Take 1 Tablet (1,000 mcg) by mouth once daily. 90 Tablet 3 02/20/20 21 Active venlafaxine (EFFEXOR XR) 75 mg cp24 Extended-Release capsuleIndications :Depression with anxiety Take 1 Capsule (75 mg) by mouth once daily with a meal. 90 Capsule 3 02/20/20 24 Active atorvastatin (LIPITOR) 10 mg tabletIndications: Hyperlipidemia, unspecified hyperlipidemia type Take 1 Tablet (10 mg) by mouth at bedtime. 90 Tablet 3 02/20/20 24 Active famotidine (PEPCID) 40 mg tabletIndications: Chronic GERD Take 1 Tablet (40 mg) by mouth two times daily. 180 Tablet 3 02/20/20 24 Active Hospital, Clinic, or Other Facility Administered Medication Ordered Dose Route Frequency Start Date End Date Status denosumab (PROLIA) injection 60 mgIndications:Age-rel ated osteoporosis without current pathological fracture 60 mg SubQ Q 6 MONTHS (24 WEEKS) 08/06/2021 Active Active Problems Problem Noted Date Diagnosed [...] (shortness of breath) 02/28/2014 Dizziness 02/28/2014 08/31/2021 Immunizations Immunization Administration Dates Next Due AMB Influenza, IIV4 PF (=>6 mos Flulaval,Fluzone Fluarix)(Flu Clinic Only) 12/14/2013 COVID-19 vaccine ([employer]Kit [employer]ure [employer] 30mcg/0.3mL) 12YO+ PADMA-SUCROSE PF, MDV 06/12/2021 Influenza A (H1N1), Inactiva karla (Age >=3 Years) 02/28/2009 Influenza Virus, Unspecified 12/15/2012,12/27/19 11,12/12/2009 Influenza, High-dose Inactivated 12/19/2018,11/13 Influenza, IIV3 (Age >=3 years) 11/21/2009 Influenza, IIV4 11/07/2015, 5,12/14/2013,02/28 Influenza, Inactivated AIIV4 (Age 65+ Years) Preserv Free 12/09/2022,12/29/2021,12/10/2020,10/28 Influenza, Inactivated IIV3 (Age 65+ Years) Preserv Free 12/12/2023,11/13/2019,11/26/2016 Pneumococcal Poly,23-Valent (Pneumovax) 02/02/2017 Pneumococcal conj 13-Valent (Prevnar 13) 01/27/2016 RSV, Bivalent Vaccine Recons tituted (Abrysvo 120MCG/0.5mL) 12/22/2022 Td (Age >=7 Years) 02/16/2006 Tdap 09/05/2015 Tetanus Toxoid 02/16/2006 Zoster (Shingrix-RZV, recombinant) 02/24/2018, Zoster (Zostavax-ZVL, live) 04/17/2015 Family History Medical History Relation Name Comments Heart Disease Brother DC x2, stents Arthritis Father And gout Other [...] Answer Date Recorded PHQ-2 TOTAL SCORE 0 02/20/2024 Social Connections Answer Date Recorded Do you often feel lonely or isolated from those around you? 0 02/17/2024 Financial Resource Strain Answer Date R ecorded Difficulty of Paying Living Expenses 3 02/17/2024 Difficulty of Paying Living Expenses Not on file 02/17/2024 Food Insecurity Answer Date Recorded Do you worry your food will run out before you are able to buy more? 1 02/17/2024 Transportation Needs Answer Date Record ed Does lack of transportation keep you from medica l appointments? 1 02/17/2024 Does lack of transportation keep you from work, meetings or getting things that you need? 1 02/17/2024 Housing Stability Answer Date Recorded What is your housing situation today? 1 02/17/2024 Utilities Answer Date Recorded Do you have trouble paying f or utilities (for example, heat, electricity, water, phone)? 1 02/17/2024 Comments No Sex and Gender Information Value Date Recorded Sex Assigned at Not on file Legal Sex Female 7:08 AM SEWING PATTERN LAYOUT TECHNICIAN Gender Identity Not on file Sexual Orientation Not on file Occupation Industry Job Start Date Job End Date per diem Not on file Not on file Not on file Obstetrics History Last Filed Vital Signs Vital Sign Reading Time Taken Comments Blood Pressure 124/68 02/20/2024 8:06 AM SEWING PATTERN LAYOUT TECHNICIAN Pulse 64 02/20/2024 8:06 AM SEWING PATTERN LAYOUT TECHNICIAN Temperature 37.1 C (98.7 F) 09/01/2022 8:10 AM CDT Respiratory Rate 12 09/01/2022 8:10 AM CDT Oxygen Saturation 99% 02/16/2023 10: 08 AM SEWING PATTERN LAYOUT TECHNICIAN Inhaled Oxygen Concentration - - Weight 79.2 kg (174 lb 11.2 oz) 02/20/2024 8:06 AM SEWING PATTERN LAYOUT TECHNICIAN Height 165 cm (5' 4.96) 02/20/2024 8:06 AM SEWING PATTERN LAYOUT TECHNICIAN Body Mass Index 29.11 02/20/2024 8:06 AM SEWING PATTERN LAYOUT TECHNICIAN Plan of Treatment Upcoming Encounters Date Type Department Care Team (Late st Contact Info) Description 06/25/2024 8:15 AM CDT Nurse/Clinic Staff Only [facility] [address] [facility] [place] [address] Health Maintenance Due Date Last Done Comments COVID-19 vaccine series ( season) 2024 12/12/2023, 12/13/2022, 12/29/2021, Additional history exists Mammogram for age 45-75 11/06/2024 11/07/19 24, 09/28/2022, 09/18/2021, Additional history exists BMI (ht and wt on same day) for age 18+ 02/19/2025 02/20/2024, 02/16/2023, 09/01/2022, Additional history exists Depression screening for age 12+ 02/19/2025 02/20/2024, 02/18/2023, 02/16/2023, Additional history exists Medicare Wellness for age 65+ 02/20/2025, 02/16/2023, 02/12/2022, Additional history exists Tetanus booster 09/04/2025 09/05/2015, 02/16/2006 Colonoscopy through age 75 02/08/202602/08, 02/09/2016, 02/09/2016, Additional history exists Lipids for age 45-75 02/19/2029 02/20/2024, 02/16/2023, 02/12/2022, Additional history exists Tdap Completed 09/05/2015 Pneumococcal series for age 50+ Completed 7, 01/27/2016 Zoster (shingles) series for age 50+ Completed 02/24/2018, 12/19/2017, 04/17/2015 Hepatitis C screening for ag e 18-79 Completed 02/07/2019 DEXA/DXA scan for age 65+ Completed 2021, 02/07/2018, 10/13/2015 RSV vaccine for adults or Completed 12/22/2022 Influenza Vaccine Completed 12/12/2023, , 12/29/2021, Additional history exists Procedures Procedure Name Priority Date/Time Associated Diagnosis Comments LIPID PANEL W REFLEX MEASURED LDL Routine 02/20/2024 9:05 AM SEWING PATTERN LAYOUT TECHNICIAN Hyperlipidemia, unspecified hyperlipidemia type XR MAMMO YI BILAT SCREEN Routine 11/07/2023 9:03 AM CDT Encounter for other screening for malignant neoplasm of breast XR DXA BONE DENSITY 2 SITES AXIAL Routine 03/16/2021 2:37 PM SEWING PATTERN LAYOUT TECHNICIAN Age-related osteoporosis without current pathological fracture Asymptomatic postmenopausal state ANTI HCV Routine 02/07/2019 10:19 AM SEWING PATTERN LAYOUT TECHNICIAN Need for hepatitis C screening test COLONOSCOPY SCREENING Routine 02/09/2016 7:59 AM SEWING PATTERN LAYOUT TECHNICIAN Screening from Last 3 Months or Most Recently Relevant to Health Maintenance Results * LIPID PANEL W REFLEX MEASURED LDL (02/20/2024 9:05 AM SEWING PATTERN LAYOUT TECHNICIAN) CHOLESTEROL, TOTAL 185 <200 mg/dL [facility] HDL CHOLESTEROL 81 > OR = 50 mg/dL [facility] TRIGLYCERIDES 96 <150 mg/dL [facility] LDL-CHOLESTEROL 85 mg/dL (calc) [facility] Comment: Reference range: <100 Desirable range <100 mg/dL for primary prevention; <70 mg/dL for patients with CHD or diabetic patients with > or = 2 CHD risk factors. LDL-C is now calculated using the Alvaro-Audelia calculation, which is a validated novel method providing better accuracy than the Friedewald equation in the estimation of LDL-C. Alvaro SS et al. RAY. 2013;310(19): 2871-9864 (http://education.[employer]/faq/BXX269) CHOL/HDLC RATIO 2.3 <5.0 (calc) [facility] NON HDL CHOLESTEROL 104 <130 mg/dL (calc) [facility] Comment: For patients with diabetes plus 1 major ASCVD risk factor, treating to a non-HDL-C goal of <100 mg/dL (LDL-C of <70 mg/dL) is considered a therapeutic option. Blood BLOOD SPECIMEN / Unknown 02/20/2024 9:05 AM SEWING PATTERN LAYOUT TECHNICIAN 02/20/2024 9:06 AM SEWING PATTERN LAYOUT TECHNICIAN Narrative [facility] - 02/21/2024 3:34 AM SEWING PATTERN LAYOUT TECHNICIAN FASTING:YES FASTING: YES Luda Robbins DO CHEMISTRY Final Result [facility] [address] [place] [address], [facility] [address] [place] [address] * XR MAMMO YI BILAT SCREEN (11/07/2023 9:03 AM CDT) Anatomical Region Laterality Modality BREASTS, Breast Left, Breast Right Bilateral Mammography Impressions 11/07/2023 12:26 PM CDT There is no radiographic evidence for malignancy. Recommend annual mammograms. MAMMOGRAM ASSESSMENT: ACR 1 Negative PATIENTS: You will also receive a letter with your examination results in an easy to read format. If you have questions about your results, please [...] care provider. XR MAMMO YI BILAT SCREEN [[id number]] CLINICAL HISTORY: This is an asymptomatic 73 y.o. patient. INDICATION FOR EXAM: Mammogram Screening. TECHNIQUE: CC & MLO views were obtained. This study was evaluated with the assistance of Computer-Aided Detection. Breast Tomosynthesis was used in interpretation. COMPARISON FILM: Yes 09/28/22 FINDINGS: There are scattered areas of fibroglandular density. There are no dominant masses, suspicious micro calcifications or areas of architectural distortion. us Luda Robbins DO MAMMO Final Result * (ABNORMAL) XR DXA BONE DENSITY 2 SITES AXIAL (03/16/2021 2:37 PM SEWING PATTERN LAYOUT TECHNICIAN) Anatomical Region Laterality Modality Spine, HIPS, HIPL, HIPR Computed Radiography Impressions 03/17/2021 3:54 PM SEWING PATTERN LAYOUT TECHNICIAN Osteopenia. Bone density has increased significantly since 2018 with [...] exercise. Continue Prolia for 5 consecutive years. After stopping Prolia, must treat with a bisphosphonate because of rapid bone loss that occurs after stopping Prolia. Narrative 03/17/2021 3:54 PM SEWING PATTERN LAYOUT TECHNICIAN For Patients: Results are automatically released to your [employer] ([employer]) account once available, in compliance with federal regulations. This means that you may see your results before your provider has had a chance to review them. Please allow 2-3 business days for your provider to comment on the results. XR DXA Bone Mineral Density (BMD) [facility] [address] [address] PATIENT NAME: Sofiya Gómez DATE OF : 1950 EXAM DATE: 03/16/2021 REQUESTING PROVIDER: Luda Robbins DO GENDER AT : female HEIGHT: 5' 4.07 (02/11/2021) WEIGHT: 170 lb (02/19/2021) MENOPAUSAL STATUS: Postmenopausal RACE/ETHNICITY: White [...] two scanners are made by the same jr. systems administrator. PROCEDURE: Dual-energy x-ray absorptiometry performed with routine [...] - 1.4 Change from prior in 2018: Increase 14.1%. RESULTS FEMUR Left femoral neck BMD: 0.874 g/cm2 T-Score: - 1.2 Change from prior in 2018: Decrease 2.9%. Right femoral neck BMD: 0.938 g/cm2 T-Score: - 0.7 Change from prior in 2018: Increase 9.2%. Left hip BMD: 0.955 g/cm2 T-Score: - 0.4 Change from prior in 2018: Increase 5.4%. Right hip BMD: 0.919 g/cm2 T-Score: - 0.7 Change from prior in 2018: Increase 6.9%. WHO criteria: Normal: T-score at or above -1 SD Osteopenia: T-score between -1.1 and -2.4 SD Osteoporosis: T-score at or below -2.5 SD Luda Robbins DO DEXA Final Result * ANTI HCV (02/07/2019 10:19 AM SEWING PATTERN LAYOUT TECHNICIAN) HEPATITIS C ANTIBODY Non-React ameena Non-React ameena 02/07/2019 3:50 PM SEWING PATTERN LAYOUT TECHNICIAN [facility] Comment:Antibodies to HCV no t detected; does not exclude the possibility of exposure to HCV. Blood BLOOD SPECIMEN / Unknown Venipuncture / Unknown 02/07/2019 10:19 AM SEWING PATTERN LAYOUT TECHNICIAN 02/07/2019 10:20 AM SEWING PATTERN LAYOUT TECHNICIAN Luda Robbins DO SEND OUTS Final Result [facility] [address] [place] [address], * COLONOSCOPY SCREENING (02/09/2016 7:59 AM SEWING PATTERN LAYOUT TECHNICIAN) Luda Robbins DO GI PROCEDURE ORD Final Resul t from Last 3 Months or Most Recently Relevant to Health Maintenance Insurance [facility] MEDICARE PART B HB ONLY BLUE [employer] BLUE MR PB ONLY BLUE [employer] BLUE HB ONLY MEDICARE PART A HB ONLY Advance Directives Documents on File Type Date Recorded Patient Change Analyst Expl anation Healthcare Directive 07/03/2021 022 Healthcare Directive 03/15/2015 12:00 AM Care Teams Laundry Bag Punch Operator Relationship Specialty Start Date End Date Luda Robbins DO [address] [place] [address] PCP - General Internal Medicine 03/19/14 Rochelle Guerrero MD [address] [place] [address] Rheumatology Rheumatology 04/18/14
[2024-06-12 12:22] VITALS: BP 137/70; PULSE 69; RESP 16; TEMP 36.6; O2SAT 96; BMI 29.1
--- NOTE | 2024-06-12 12:49 | CRLHL7_ITS ---
For Patients: As a result of the Century Cures Act, medical imaging exams and procedure reports are released immediately into your electronic medical record. You may view this report before your referring provider. If you have questions, please contact your health care provider. INDICATION: Headache TECHNIQUE: CT head without contrast. COMPARISON: None. FINDINGS: MASS EFFECT AND VENTRICLES: No significant midline shift. The lateral ventricles are symmetric. Basal cisterns patent. No sulcal effacement. The ventricles, cisterns, and other CSF containing spaces are symmetrically prominent secondary to diffuse parenchymal volume loss but are otherwise normal as to shape and position. BRAIN: Diffuse cerebral volume loss. Basal ganglia calcifications. Periventricular hypodensities likely secondary to age-related microvascular ischemic changes. No acute infarct or hemorrhage. VASCULAR: No acute abnormalities of the cavernous carotids and vertebral vessels on noncontrast exam. EXTRA-AXIAL: Extra-axial spaces are normal. EXTRA-CRANIAL: No acute calvarial or facial fractures. Sinuses and mastoids are clear. Bilateral lens replacements. IMPRESSION: No acute intracranial abnormality. Please note that all CT scans at this facility use dose modulation, iterative reconstruction, and/or weight-based dosing when appropriate to reduce radiation dose to as low as reasonably achievable. Dictated by Adry Rendon MD @ 06/12/2024 1:45:14 PM (Electronically Signed)
--- NOTE | 2024-06-12 12:52 | ED_ITS ---
HPI - Headache General Date Seen: 06/12/24 Chief Complaint: Headache/Migraine Stated Complaint: had a spell lightheaded and weak Time Seen by Provider: 06/12/24 12:37 Source: patient Mode of arrival: ambulatory Limitations: no limitations History of Present Illness HPI Narrative: Patient is a 74-year-old female presenting to the emergency department for headache. She states she has been having headache for the past 2 weeks. Has had migraines before but this is more persistent and does not go way which is atypical for her. States the intensity of the headache seems to come and go. Nothing seems to make the headache better. States while she was in the car today she had this episode of feeling like she on all body experience. She has never had these sensation before. Has also been having lightheadedness for the past 2 weeks. States feels like she is wants to fall sleep. Denies any sensation of the room spinning or like she is on a boat. She does states she feels slightly off balance. Has had some nausea but no vomiting he denies chest pain, shortness of breath, abdominal pain, numbness, fevers, chills. Related Data Home Medications ?Medication ?Instructions ?Recorded ?Confirmed aspirin 81 mg tablet,delayed 81 mg PO QDAY 12/21/23 02/03/24 release (Adult Low Dose Aspirin) atorvastatin 10 mg tablet 10 mg PO QHS 12/21/23 02/03/24 calcium carbonate 600 mg PO BID 12/21/23 02/03/24 famotidine 20 mg tablet 20 - 40 mg PO BID 12/21/23 02/03/24 mecobalamin (vitamin B12) 1,000 1,000 mcg sublingual QDAY 12/21/23 02/03/24 mcg disintegrating tablet,sublingual multivitamin (Multiple Vitamins 1 tab PO QDAY 12/21/23 02/03/24 tablet) venlafaxine 37.5 mg 37.5 mg PO DAILY 12/21/23 02/03/24 capsule,extended release 24 hr Allergies Allergy/AdvReac Type Severity Reaction Status Date / Time adhesive AdvReac Intermediate Rash Verified 06/12/24 12:21 Review of Systems Status of ROS: Reports: 10 or more systems reviewed and unremarkable except as noted in History and below PFSH PFSH Social History Smoking Status: Never smoker Do you use any of these nicotine containing products: None How often do you have a drink containing alcohol: 2-3 times a week AUDIT-C Alcohol total score: 3 Non-prescribed substance use: denies use Exam Narrative: Exam Narrative: Const: Well-nourished, Well-developed, in mild distress Eyes: PERRL, no conjunctival injection, and symmetrical lids HENT: Atraumatic external nose and ears. Moist mucous membranes. Neck: Symmetric, trachea midline, No thyromegaly. CVS: RRR, No murmurs or gallops. Peripheral pulses 2+ and equal in all extremities RESP: Unlabored respiratory effort. Clear to auscultation bilaterally. GI: Nontender/Nondistended, No rebound or guarding. MSK:Extremities w/o deformity, Normal Active ROM Skin: Warm, Dry. No rashes or lesions. Neuro: Normal Muscle tone, Cranial nerves 2-12 grossly intact, normal rxmy-aq-vrvh, normal tptlig-ev-mfgq, normal gait, normal strength 5/5 upper lower extremities bilaterally, normal sensation upper and lower extremities bilaterally, normal rapid alternating movements. Psych: Awake, Alert, & Oriented x3. Appropriate mood and affect. Const: Vital Signs, click to edit/add: Vital Signs - 24 hr 06/12/24 12:22 06/12/24 14:20 Temperature 97.8 F 98.0 F Pulse Rate [Pulse Oximeter] 69 69 Respiratory Rate 16 18 Blood Pressure [Ri ght Upper Arm] 137/70 141/80 H Pulse Oximetry 96 99 Oxygen Delivery Me thod Room Air Room Air Course Vital Signs Vital signs: Initial Vital Signs Temperature 97.8 F 06/12/24 12:22 Temperature Source Temporal Artery Scan 06/12/24 12:22 Pulse Rate 69 06/12/24 12:22 Respiratory Rate 16 06/12/24 12:22 Blood Pressure 137/70 06/12/24 12:22 Blood Pressure Mean 92 06/12/24 12:22 Pulse Oximetry 96 06/12/24 12:22 Oxygen Delivery Method Room Air 06/12/24 12:22 Vital Signs Temperature 97.8 F 06/12/24 12:22 Pulse Rate 69 06/12/24 12:22 Respiratory Rate 16 06/12/24 12:22 Blood Pressure 137/70 06/12/24 12:22 Pulse Oximetry 96 06/12/24 12:22 Oxygen Delivery Method Room Air 06/12/24 12:22 Temperature 98.0 F 06/12/24 14:20 Pulse Rate 69 06/12/24 14:20 Respiratory Rate 18 06/12/24 14:20 Blood Pressure 141/80 H 06/12/24 14:20 Pulse Oximetry 99 06/12/24 14:20 Oxygen Delivery Method Room Air 06/12/24 14:20 Medications Administered Medications: Discontinued Medications Generic Name Dose Route Start Last Admin Trade Name Sameer PRN Reason Stop Dose Admin Diphenhydramine HCl 25 mg 06/12/24 12:49 06/12/24 13:49 Diphenhydramine 50 Mg/Ml Inj IVP 06/12/24 12:50 25 mg ONCE ONE Administration Sodium Chloride 1,000 mls @ 1,000 mls/hr 06/12/24 13:00 06/12/24 13:45 0.9 % Sodium Chloride 1000 Ml IV 06/12/24 13:59 1,000 mls/hr .Q1H BEAN Administration Ketorolac Tromethamine 15 mg 06/12/24 12:49 06/12/24 13:47 Ketorolac 15 Mg/Ml Inj IVP 06/12/24 12:50 15 mg ONCE ONE Administration Metoclopramide HCl 10 mg 06/12/24 12:49 06/12/24 13:53 Metoclopramide Hcl 5 Mg/Ml Inj IVP 06/12/24 12:50 10 mg ONCE ONE Administration MDM - Headache MDM Narrative Medical decision making narrative: Patient is 74-year-old female presenting to the emergency department for a headache and some mild lightheadedness. Will check the EKG and troponin for signs of cardiac involvement. Will do BMP and magnesium check for signs of electrolyte abnormalities. CBC also ordered for possible anemia. Considering like the symptoms in her atrial do CT scan of the head to make sure there are no intracranial masses. Will give her a migraine cocktail for her symptoms. EKG shows no concerning abnormalities. Lab work shows no concerning findings. Head CT reviewed by myself and the radiologist shows no acute concerning abnormalities. Patient is feeling better after the migraine cocktail. This time I believe she is safe for discharge. She is agreeable to this plan. Lab Data Labs: Lab Results 06/12/24 Range/Units 13:27 WBC 4.12 L (4.50-11.00) K/uL RBC 3.67 L (4.00-5.20) m/uL Hgb 11.8 L (12.0-16.0) gm/dL Hct 35.8 (33.0-51.0) % MCV 98 (80-100) fL MCH 32 (26-34) pg MCHC 33 (32-36) gm/dL RDW Coeff of Laci 12.5 (11.5-15.5) % Plt Count 215 (140-440) K/uL Neut % (Auto) 37.7 L (42.0-72.0) % Lymph % (Auto) 43.0 (20-44) % Summit % (Auto) 13.8 H (0.0-11.0) % Eos % (Auto) 5.1 (0.0-7.0) % Baso % (Auto) 0.2 (0.0-3.0) % Neut # (Auto) 1.60 L (1.7-7.0) K/uL Lymph # (Auto) 1.80 (0.90-2.90) K/uL Summit # (Auto) 0.60 (0.00-0.90) K/UL Eos # (Auto) 0.20 (0.00-0.50) K/uL Baso # (Auto) 0.00 (0.00-0.30) K/uL Abs Immat Gran (auto) 0.00 (0.00-0.30) K/uL Imm/Tot Granulo (auto) 0.2 % Sodium 137 (135-149) mmol/L Potassium 4.0 (3.6-5.1) mmol/L Chloride 108 (96-114) mmol/L Carbon Dioxide 21 (20-32) mmol/L Anion Gap 8 (7-15) mEq/L BUN 16 (7-30) mg/dL Creatinine 0.8 (0.5-1.5) mg/dL Estimated Creat Clear 43.27 Estimated GFR 78 ml/min Glucose 89 (60-115) mg/dL Calcium 9.2 (8.4-10.6) mg/dL Magnesium 2.1 (1.5-2.6) mg/dL Troponin I < 0.01 (0.01-0.04) ng/mL Imaging Data CT scan - head: Attestation: I have reviewed the pertinent imaging results. Radiologist's impression: No acute intracranial abnormality. Please note that all CT scans at this facility use dose modulation, iterative reconstruction, and/or weight-based dosing when appropriate to reduce radiation dose to as low as reasonably achievable. Dictated by Adry Rendon MD @ 06/12/2024 1:45:14 PM ECG Data Attestation: I personally reviewed and interpreted this ECG as follows: Prior ECG tracings: not available for review Interpretation: normal sinus rhythm with a rate of 61 beats per minute, normal intervals, normal axis, no ST or T-wave abnormalities. Discharge Plan Discharge Clinical Impression: Headache Qualifiers: Headache type: unspecified Headache chronicity pattern: unspecified pattern Intractability: not intractable Qualified Code(s): R51.9 - Headache, unspecified Patient Disposition: Home, Self-Care Condition: Stable Instructions: Acute Headache (ED) Additional Instructions: Take Tylenol and ibuprofen for the headache. If symptoms persist follow-up with your primary care provider. Return to emergency department for new or worsening symptoms Prescriptions: No Action atorvastatin 10 mg tablet 10 mg PO QHS venlafaxine 37.5 mg capsule,extended release 24hr 37.5 mg PO DAILY famotidine 20 mg tablet 20 - 40 mg PO BID aspirin [Adult Low Dose Aspirin] 81 mg tablet,delayed release (DR/EC) 81 mg PO QDAY calcium carbonate 600 mg calcium (1,500 mg) tablet 600 mg PO BID mecobalamin (vitamin B12) 1,000 mcg tablet,disintegrating 1,000 mcg sublingual QDAY Rx Instructions: place tablet under tongue and allow to dissolve for at least30 secs before swallowing multivitamin [Multiple Vitamins] Tablet 1 tab PO QDAY Follow Up/Referrals: Luda Robbins [Primary Care Provider] - Stand Alone Forms: [employer] Info Instructions
[2024-06-12 13:36] LABS: Basophils Percent Auto 0.2 % (0.0-3.0); Eosinophils Percent Auto 5.1 % (0.0-7.0); Hematocrit 35.8 % (33.0-51.0); Hemoglobin* 11.8 gm/dL (12.0-16.0); Immature Granulocytes Pct Auto 0.2 %; Mean Corpuscular HGB Conc 33 gm/dL (32-36); Mean Corpuscular Hemoglobin 32 pg (26-34); Mean Corpuscular Volume 98 fL (80-100); Monocytes Percent Auto 13.8 % (0.0-11.0); Neutrophils Percent Auto 37.7 % (42.0-72.0); Platelet Count* 215 K/uL (140-440); RDW Coefficient of Variation % 12.5 % (11.5-15.5); Red Blood Count 3.67 m/uL (4.00-5.20); White Blood Count* 4.12 K/uL (4.50-11.00)
[2024-06-12 13:37] LABS: Slide Review Reflex No
--- OUTSIDE RECORDS SUMMARY | 2024-06-12 13:44 | XMS_ITS | Clinical Summary ---
Author Organization [facility] Address [address] [place] [id number] Care Team Providers Care Bereavement Counselor Name Role Phone Rosendo Luda Baez DO Primary Care Provider Rochelle Guerrero MD Unavailable [phone] Allergies No known active allergies Medications calcium [...] Flulaval,Fluzone Fluarix)(Flu Clinic Only) 12/14/2013 COVID-19 vaccine (Faculte NTEnsighten 30mcg/0.3mL) 12YO+ PADMA-SUCROSE PF, MDV 06/12/2021 Influenza [...] History Relation Name Comments Heart Disease Brother [place] x2, stents Arthritis Father And gout Other [...] on file Legal Sex Female 7:08 AM 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 Gender Identity Not on file Sexual Orientation Not on file 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 on file Not on file Not on file Obstetrics History Last Filed Vital Signs Vital Sign Reading Time Taken Comments Blood Pressure 124/68 02/20/2024 8:06 AM 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 Pulse 64 02/20/2024 8:06 AM 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 Temperature 37.1 C (98.7 F) 09/01/2022 8:10 AM CDT Respiratory Rate 12 09/01/2022 8:10 AM CDT Oxygen Saturation 99% 02/16/2023 10: 08 AM 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 Inhaled Oxygen Concentration - - Weight 79.2 kg (174 lb 11.2 oz) 02/20/2024 8:06 AM 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 Height 165 cm (5' 4.96) 02/20/2024 8:06 AM 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 Body Mass Index 29.11 02/20/2024 8:06 AM 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 Plan of Treatment Upcoming Encounters Date Type Department Care Team (Late st Contact Info) Description 06/25/2024 8:15 AM CDT Nurse/Clinic Staff Only [facility] [address] [facility] [place] [id number] Health Maintenance Due Date Last Done Comments [...] REFLEX MEASURED LDL Routine 02/20/2024 9:05 AM 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 Hyperlipidemia, unspecified hyperlipidemia type XR MAMMO YI BILAT SCREEN Routine 11/07/2023 9:03 AM CDT Encounter for other screening for malignant neoplasm of breast XR DXA BONE DENSITY 2 SITES AXIAL Routine 03/16/2021 2:37 PM 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 Age-related osteoporosis without current pathological fracture Asymptomatic postmenopausal state ANTI HCV Routine 02/07/2019 10:19 AM 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 Need for hepatitis C screening test COLONOSCOPY SCREENING Routine 02/09/2016 7:59 AM 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 Screening from Last 3 Months or Most Recently Relevant to Health Maintenance Results * LIPID PANEL W REFLEX MEASURED LDL (02/20/2024 9:05 AM 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) CHOLESTEROL, TOTAL 185 <200 mg/dL [facility] [...] LDL-C. Alvaro SS et al. RAY. 2013;310(19): 9071-4605 (http://education.DigitalChalk.Just Eat/faq/VHZ500) CHOL/HDLC RATIO 2.3 <5.0 (calc) [facility] [place] NON HDL CHOLESTEROL 104 <130 mg/dL (calc) [facility] Laurente Comment: For patients with diabetes plus 1 major ASCVD risk factor, treating to a non-HDL-C goal of <100 mg/dL (LDL-C of <70 mg/dL) is considered a therapeutic option. Blood BLOOD SPECIMEN / Unknown 02/20/2024 9:05 AM 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 02/20/2024 9:06 AM 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 Narrative [facility] - 02/21/2024 3:34 AM 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 FASTING:YES FASTING: YES Luda Robbins DO CHEMISTRY Final Result [employer] [facility] [address] [place] [address], [facility] [address] [place] [address] * XR MAMMO YI BILAT SCREEN (11/07/2023 [...] care provider. XR MAMMO YI BILAT SCREEN [[id number]] CLINICAL HISTORY: This is an asymptomatic 73 [...] DENSITY 2 SITES AXIAL (03/16/2021 2:37 PM 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) Anatomical Region Laterality Modality Spine, HIPS, HIPL, HIPR Computed Radiography Impressions 03/17/2021 3:54 PM 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 Osteopenia. Bone density has increased significantly since [...] after stopping Prolia. Narrative 03/17/2021 3:54 PM 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 For Patients: Results are automatically released to your unrival (Oppten) account once available, in compliance with federal regulations. This means that you may see your results before your provider has had a chance to review them. Please allow 2-3 business days for your provider to comment on the results. XR DXA Bone Mineral Density (BMD) EXAM LOCATION: [email or web address] [address] [address] PATIENT NAME: Sofiya Gómez DATE OF : [...] two scanners are made by the same polytechnic registrar. PROCEDURE: Dual-energy x-ray absorptiometry performed with routine [...] Result * ANTI HCV (02/07/2019 10:19 AM 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) HEPATITIS C ANTIBODY Non-React ameena Non-React ameena 02/07/2019 3:50 PM 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 [facility] Comment:Antibodies to HCV no t detected; does not exclude the possibility of exposure to HCV. Blood BLOOD SPECIMEN / Unknown Venipuncture / Unknown 02/07/2019 10:19 AM 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 02/07/2019 10:20 AM 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 Luda Robbins DO SEND OUTS Final Result [facility] [address] [place] [address], * COLONOSCOPY SCREENING (02/09/2016 7:59 AM 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) Luda Robbins DO GI PROCEDURE ORD Final Resul t from Last 3 Months or Most Recently Relevant to Health Maintenance Insurance [facility] MEDICARE PART B HB ONLY [place] BLUE MR PB ONLY [place] BLUE HB ONLY MEDICARE PART A HB ONLY Advance Directives Documents on File Type Date Recorded Patient Clinical Auditor Expl anation Healthcare Directive 07/03/2021 022 Healthcare Directive 03/15/2015 12:00 AM Care Teams Bereavement Counselor Relationship Specialty Start Date End Date Luda Robbins DO [address] [place] [address] PCP - General Internal Medicine 03/19/14 Rochelle Guerrero MD [address] [place] [address] Rheumatology Rheumatology 04/18/14
--- OUTSIDE RECORDS SUMMARY | 2024-06-12 13:44 | XMS_ITS | Clinical Summary ---
Author Organization [facility] Address [address] [place] [address] Care Team Providers Care Journal Clerk Name Role Phone None Reported, Pcp Primary Care Provider Unavail able Source Comments Patient records contain information from all sites at [facility]. For routine questions regarding patient records, call [phone] during business hours, M-F 8:00 AM - 5:00 PM Central Time. Record requests for emergency care only can be directed to [phone] at any time.[facility] Allergies Active Allergy Reactions Criticality Noted [...] 2 capsules by mouth daily. 6 Active [id number] a-fish oil (fish oil) 350-600 mg capsule [...] (06/15/2022): Added automatically from request for surgery [id number] Immunizations Immunization Administration Dates Next Due H1N1 All Forms 02/28/2009 Influenza, Unspecified 12/15/2012,2010,12/26/2010,2009 Tetanus Toxoid, Adsorbed (discontinued) 02/16/2006 Family History Medical History Relation Name Comments Coronary artery disease Brother Alzheimer's disease Father Resident of a [place] [facility]. Old age Mother Relation Name Status Comments Brother Father Mother Social History Tobacco Use Types Packs/Day Years Used Date Smoking Tobacco: Never Smokeless Tobacco: Never Tobacco Cessation:Counseling Given: Not Answered [facility] [employer] Answer Date Recorded In the past 12 months has e electric, gas, oil, or water Arithmatic[employer] threatened to shut off services in your [...] often do you attend chur ch or gnosticist services? More than 4 times per year 04/15/2022 Do you belong to any clubs o r organizations such as muslim groups, unions, fraternal or athletic groups, or [...] and heating? Not hard at all 09/09/2022 [facility] - Occupational [...] living situation today? I have a [facility] place to live 04/27/2023 Education Answer Date Recorded What is the highest level of school you have completed or the highest degree you have received? 12th grade 03/15/2022 Comments No Sex and Gender Information Value Date Recorded Sex Assigned at Female 03/15/2022 8:34 PM AUTO HEADLIGHT MECHANIC Legal Sex Female 4:53 AM AUTO HEADLIGHT MECHANIC Gender Identity Female 03/15/2022 8:34 PM AUTO HEADLIGHT MECHANIC Sexual Orientation Straight 03/15/2022 8: 34 PM AUTO HEADLIGHT MECHANIC Last Filed Vital Signs Vital Sign Reading Time Taken Comments Blood Pressure 138/77 06/08/2023 2:15 PM CDT Pulse 72 06/08/2023 2:20 PM CDT Temperature 36.7 C (98.1 F) 06/08/2023 12:43 PM CDT Respiratory Rate 20 06/08/2023 2:20 PM CDT [...] 03/19/2014 03/19/2013, 06/2012, 03/12/2011, Additional history exists COVID-19 Vaccine ( season) 2023 12/13/2022, 12/29/2021, 06/12/2021, Additional history exists Influenza Vaccine (#1) 2023 , 12/29/2021, 12/10/2020, Additional history exists Depression Screening (Annual PHQ-2) 03/14/2024 Fall Risk Screen (Annual) 03/14/2024 DTaP,Tdap,and Td Vaccines (2 - Td or Tdap) 09/03/2025 09/04/2015 Colonoscopy 02/08/2026 02/09/2016, 01/10/2006 Colorectal Cancer Screening 02/08/2026 Fasting Glucose for Diabetes Screening 02/16/2026 02/16/2023, 02/12/2022, 06/05/2021, Additional history exists Pneumococcal vaccine (50+ years) Completed 02/02/2017, 01/27/2016 Zoster Vaccines Completed 02/24/2018, 10/2017, 04/17/2015, Additional history exists IPV Vaccines Aged Out No longer eligi ble based on patient's age to complete this topic Medical Devices Implanted Type Area Labor Relations Representative Device Identifier Shelf Expiration Date Model / Serial / Lot Lens Tcn Mnfcl Dcb00 +19.5d - [id number] - [id number] Implanted:Qty : 1 on 09/15/2022 by Miguel Almaraz M.D. at [facility] Ocular Lens Left: Eye [employer] (Previously BARBARA) 05/31/2025 [id number] / [id number] / Lens Tcn Mnfcl Dcb00 +20.5d - [id number] - [id number] Implanted:Qty : 1 on 06/08/2023 by Miguel Almaraz M.D. at [facility] Ocular Lens Right: Eye [employer] (Previously BARBARA) 11/24/2025 [id number] / [id number] / Procedures Procedure Name Priority Date/Time Associated Diagnosis Comments BI BREAST SCREENING BILATERAL Routine 03/19/2013 12:00 PM AUTO HEADLIGHT MECHANIC from Last 3 Months or Most Recently Relevant to Health Maintenance Results * BI Breast Screening Bilateral (03/19/2013 12:00 PM AUTO HEADLIGHT MECHANIC) Anatomical Region Laterality Modality Breast Bilateral Mammography 03/19/2013 12:0 0 PM AUTO HEADLIGHT MECHANIC Impressions 03/19/2013 1:49 PM AUTO HEADLIGHT MECHANIC Negative mammogram. Recommend annual screening mammography. BREAST MAMMOGRAPHY - GENERAL OBSERVATIONS: The false negative rate for mammography is 15-20%. It cannot be used, therefore, to replace the regular physical examination. A normal or noncontributory mammogram report also should not deter the aggressive further workup of any suspected palpable masses. ACR Code 1. Narrative 03/19/2013 1:49 PM AUTO HEADLIGHT MECHANIC Comparison: 03/17/2012, 03/12/2011, 03/09/2010. FINDINGS: Breast tissue [...] Most Recently Relevant to Health Maintenance Insurance [facility] [place] [address] MEDICARE Care Teams Journal Clerk Relationship Specialty Start Date End Date None Reported, Pcp PCP - General 01/20/24
[2024-06-12] MEDS: 0.9 % SODIUM CHLORIDE 1000 ml 1,000 ML IV (13:45)
[2024-06-12] MEDS: KETOROLAC 15 MG/ML inj IVP (13:47)
[2024-06-12] MEDS: diphenhydrAMINE 50 MG/ML inj 25 MG IVP (13:49)
[2024-06-12] MEDS: METOCLOPRAMIDE HCL 5 MG/ML INJ 10 MG IVP (13:53)
[2024-06-12 14:04] LABS: Chloride* 108 mmol/L (96-114)
[2024-06-12 14:05] LABS: Sodium* 137 mmol/L (135-149)
[2024-06-12 14:07] LABS: Blood Urea Nitrogen* 16 mg/dL (7-30); Creatinine* 0.8 mg/dL (0.5-1.5); Est. Creatinine Clearance* 43.27; Estimated Glomerular Filt Rate 78 ml/min
[2024-06-12 14:08] LABS: Anion Gap 8 mEq/L (7-15); Calcium* 9.2 mg/dL (8.4-10.6); Carbon Dioxide* 21 mmol/L (20-32); Glucose* 89 mg/dL (60-115); Magnesium* 2.1 mg/dL (1.5-2.6)
[2024-06-12 14:20] VITALS: BP 141/80; PULSE 69; RESP 18; TEMP 36.7; O2SAT 99
[2024-06-12 14:20] LABS: Troponin I* < 0.01 ng/mL (0.01-0.04)
== END 2024-06-12 15:28 | disposition home or self-care (01) ==
PROVIDERS: Emergency Provider Student in an Organized Health Care Education/Training Program; PCP Internal Medicine
DX: R51.9 Headache, unspecified (principal)
CPT/HCPCS: 36415; 70450; 80048; 83735; 84484; 85025; 93005; 96374; 96375; 99284; J1200; J1885; J2765; J7030